=== PATIENT | male | born 1995 | race Two or more races ===

== ENCOUNTER 2018-11-23 13:23 | Emergency (ER) | payer OTHER ==
[~2018-11-23] VITALS: Ht 180.3 cm; Wt 99.2 kg
[2018-11-23 13:38] VITALS: BP 158/106
[2018-11-23] MEDS ORDERED: DEXAMETHASONE 4 MG TABLET PO ONE (14:00)
[2018-11-23] MEDS ORDERED: DEXAMETHASONE 4 MG TABLET ONE (14:52)
== END 2018-11-23 15:22 | disposition home or self-care (01) ==
LOC: ED 14:50
DX: L50.0 Allergic urticaria (principal)
CPT/HCPCS: 99283